=== PATIENT | female | born 1955 | race Caucasian/White ===

== ENCOUNTER → 2018-05-10 13:37 | Outpatient (CLI) | payer BC, SELFPAY ==
[2018-05-10 14:30] LABS: Add Manual Diff / Slide Review NO; Hematocrit 34.6 % (36-46); Hemoglobin 11.8 g/dL (12.0-16.0); Lymphocytes Percent Auto 17.9 % (25-40); Mean Corpuscular HGB Conc 33.9 % (30-36); Mean Corpuscular Hemoglobin 34.2 PG (26-34); Mean Corpuscular Volume 100.9 fL (80-100); Monocytes Percent Auto 11.6 % (3-14); Neutrophils Absolute Auto 4000 /uL (3000-5900); Neutrophils Percent Auto 65.5 % (50-75); Platelet Count 313 X10^3/uL (150-400); Red Blood Cell Count 3.43 X10^6/uL (4.0-5.2); Red Cell Distribution Width 13.5 % (11.6-14.8); White Blood Cell Count 6.1 X10^3/uL (4.5-11.0)
[2018-05-10 14:54] LABS: Blood Urea Nitrogen 16 mg/dL (7-17); Estimated Glomerular Filt Rate > 60.0 mL/min (>60)
== END ==
PROVIDERS: PCP Physician Assistant; Visit Provider Podiatrist
DX: M79.671 Pain in right foot (principal)
CPT/HCPCS: 36415; 82565; 84520; 85025

== ENCOUNTER → 2018-05-19 08:05 | Outpatient (CLI) | payer BC, SELFPAY ==
--- NOTE | 2018-05-19 | DI.MRI.S_ITS ---
PROCEDURE: MR FOOT RT WO/W CON INDICATIONS: RIGHT FOOT PAIN TECHNIQUE: Noncontrast sagittal T1 spin echo and T2 fast spin echo with fat saturation, long-axis T1 spin echo and T2 fast spin echo with fat saturation; short-axis T1 spin echo, proton density fast spin echo, and T2 fast spin echo with fat saturation through the forefoot. Post-contrast short axis, long axis, and sagittal T1 spin echo with fat saturation through the forefoot. COMPARISON: [facility] [place], CR, XR FOOT 3+ VIEWS RIGHT, 05/10/2018, 11:43. FINDINGS: Image quality: Suboptimal due to first MTP arthroplasty and associated artifact. Bones and joints: No suspicious osseous enhancement. No bone marrow contusions or metatarsal stress fractures. The sesamoid bones appear in expected positions, without internal edema. No metatarsophalangeal joint degeneration. No intraosseous lesions. Soft tissues: In the area marked by the fiducial, seen at the dorsal aspect of the fifth metatarsal at the level of the proximal diaphysis, there is ill-defined signal change with loss of the normal subcutaneous fat and intermediate signal on T1-weighted images isointense to muscle. There is mild focal enhancement in this region seen on image 18 series 11, which measures approximately 1.3 x 0.6 cm. The visualized plantar foot muscles demonstrate normal signal and bulk. Visualized flexor and extensor tendons appear intact, without tenosynovitis. The distal insertions of the peroneus brevis and longus tendons appear intact. The principal Lisfranc ligament appears intact. No soft tissue ganglion cysts or bursal fluid collections. Sagittal images demonstrate no evidence for plantar plate tears. IMPRESSION: Poorly defined signal change and associated enhancement in the site marked by the fiducial at the dorsal forefoot at the level of the proximal fifth metatarsal. The MR appearance is technically indeterminate. Differential includes early fibrotic process, infection, cannot exclude soft tissue neoplasm. A posttraumatic etiology is thought to be less likely. Please correlate to exam findings, and recommend clinical management. Dictated by: Uriel Trevino M.D. on 05/19/2018 at 10:00 Approved by: Uriel Trevino M.D. on 05/19/2018 at 10:29
== END ==
PROVIDERS: Visit Provider Podiatrist
DX: M79.671 Pain in right foot (principal)
CPT/HCPCS: 73720

== ENCOUNTER 2023-04-26 16:17 | Emergency (ER) | payer MEDICARE, SELFPAY ==
[2023-04-26 16:25] VITALS: BP 145/93; PULSE 75; RESP 18; TEMP 36.8; O2SAT 99; BMI 22.5
--- NOTE | 2023-04-26 16:32 | DI.RAD.S_ITS ---
PROCEDURE: XR CHEST 1V INDICATIONS: chest pain TECHNIQUE: One view of the chest was acquired. COMPARISON: None. FINDINGS: Surgical changes and devices: None. Lungs and pleura: Left perihilar infiltrate. No pleural effusions or pneumothorax. Mediastinum: Mediastinal contours appear normal. Heart size is normal. Bones and chest wall: No suspicious bony lesions. Overlying soft tissues appear unremarkable. IMPRESSION: Left perihilar infiltrates suspicious for pneumonia. Dictated by: Mariusz Sheldon M.D. on 04/26/2023 at 18:27 Approved by: Mariusz Sheldon M.D. on 04/26/2023 at 18:27
[2023-04-26 16:41] VITALS: PULSE 75; RESP 12; O2SAT 99
--- NOTE | 2023-04-26 16:46 | ED_ITS ---
HPI - Arrhythmia/Palpitations General Chief Complaint: Arrhythmia/Palpitations Stated Complaint: HEAD INJURY T-8; CARDIO REF; Afib; Time Seen by Provider: 04/26/23 16:40 Source: patient Mode of arrival: Ambulatory History of Present Illness HPI narrative: Patient is a 68-year-old female history of hypertension hyperlipidemia atrial fibrillation, cva presenting today with increasing leg weakness, a fall last week an ongoing atrial fibrillation. She reports they attempted a cardioversion in January in [place] where she receives care. She said it did not work she is really been in AFib for the last number of weeks. Her symptoms of atrial fibrillation include generalized weakness fatigue. She says they are up here for the summer in the [facility] be she fell a week ago while walking in the RV hitting her head. No loss consciousness no nausea or vomiting. She denies any chest pain or palpitations. No fever chills nausea vomiting. She reports some increasing shortness of breath with exertion but denies any orthopnea. She is n o peripheral edema. She takes flecainide Eliquis Coreg and diltiazem for her atrial fibrillation. She really does not have any new complaints today except that her speed belt sander tender in [place] recommended that she come to the ED for further evaluation. Related Data Previous Rx's Medication Instructions Recorded hydrochlorothiazide 12.5 mg tablet 12.5 mg PO QDAY #90 tabs 06/21/17 losartan 25 mg tablet 25 mg PO QDAY #90 tabs 06/21/17 furosemide 20 mg tablet (Lasix) 20 mg PO DAILY PRN weight gain #14 04/26/23 tabs Allergies Allergy/AdvReac Type Severity Reaction Status Date / Time cat dander [CAT DANDER] Allergy Mild ITCHY Unverified 02/08/18 12:33 WATERY EYES AND SNEEZING POLLEN Allergy Mild SNEEZING Uncoded 02/08/18 12:33 AND ITCHY EYES Review of Systems Review of Systems ROS Unobtainable: All systems reviewed & are unremarkable except as noted in HPI and below Patient History Surgical History Status post tubal ligation Family History Father History of prostate cancer History of lymphoma History of cancer metastatic to bone Hypertension Hyperlipidemia Mother History of breast cancer History of melanoma History of arterial ischemic stroke Hypertension Grandfather History of lung cancer Social History Smoking Status: Never smoker Smoking Status: Never smoker alcohol intake frequency: a few times a week Substance Use Type: does not use Exam Initial Vital Signs Initial Vital Signs: Vital Signs Temperature 98.3 F 04/26/23 16:25 Pulse Rate 75 04/26/23 16:25 Respiratory Rate 18 04/26/23 16:25 Blood Pressure 145/93 H 04/26/23 16:25 Pulse Oximetry 99 04/26/23 16:25 Oxygen Delivery Method Room Air 04/26/23 16:25 GENERAL: Alert well-appearing 68-year-old female HEENT: Head atraumatic,EOMI, pupils reactive, face symmetric, moist mucous membranes CARDIOVASCULAR: Irregularly irregular no murmurs RESPIRATORY: Breath sounds equal bilaterally, no wheezes rales or rhonchi. ABDOMEN: Soft, nontender. Normoactive bowel sounds all 4 quadrants. No guarding or rebound. EXTREMITIES: Normal range of motion, no clubbing or edema. Neurovascularly intact NEUROLOGICAL: Alert and oriented x4.Normal gait and speech. Cranial nerves II through XII grossly intact. Good boeavw-an-adgm, good aiiz-nl-fwft, strength equal bilaterally, no dysarthria or aphasia, sensation in tact to soft touch bilaterally, no visual changes, no facial droop SKIN: Warm, dry, no laceration, no petechiae, no rashes or lesions. Course Orders Ordered: ED Orders 04/26/23 16:32 XR chest 1V Stat EKG-12 Lead Stat 04/26/23 16:45 BNP [NT-proBNP (BNP-Adult 18+)] Stat Complete Blood Count AUTO DIFF Stat Comprehensive Metabolic Panel Stat Lipase Stat Magnesium Stat PTT Partial Thromboplastin Jean Carlos Stat Prothrombin Time INR Stat Troponin & CK Cardiac Panel Stat 04/26/23 16:53 CT head/brain wo con Stat Discontinued Medications Furosemide (Furosemide 40 Mg/4 Ml Vial) 20 mg IV NOW ONE Stop: 04/26/23 17:55 Last Admin: 04/26/23 18:05 Dose: Not Given Documented By: RACHEL Vital Signs Vital signs: Vital Signs - 8 hr 04/26/23 16:25 04/26/23 16:41 06/27/23 17:08 Temperature 98.3 F Pulse Rate 75 75 82 Respiratory Rate 18 12 Blood Pressure 145/93 H Pulse Oximetry 99 99 96 Oxygen Delivery Method Room Air 04/26/23 17:30 04/26/23 18:00 04/26/23 18:08 Temperature Pulse Rate 70 76 82 Respiratory Rate 19 21 25 H Blood Pressure Pulse Oximetry 97 98 97 Oxygen Delivery Method 04/26/23 18:08 Temperature Pulse Rate Respiratory Rate Blood Pressure 164/89 H Pulse Oximetry Oxygen Delivery Method MDM - Arrhythmia/Palpitations Lab Data 04/26/23 16:45 04/26/23 16:45 Labs: Lab Results 04/26/23 04/26/23 04/26/23 Range/Units 16:45 16:45 16:45 WBC 6.3 (4.5-11.0) X10^3/uL RBC 4.01 (4.0-5.2) X10^6/uL Hgb 13.5 (12.0-16.0) g/dL Hct 39.2 (36-46) % MCV 97.9 (80-100) fL MCH 33.7 (26-34) PG MCHC 34.5 (30-36) % RDW 15.8 H (11.6-14.8) % Plt Count 265 (150-400) X10^3/uL Neut % (Auto) 67.7 (50-75) % Lymph % (Auto) 19.7 L (25-40) % Caswell % (Auto) 7.9 (3-14) % Eos % (Auto) 2.9 (2-4) % Baso % (Auto) 1.8 (0-2) % Neut # (Auto) 4300 (8745-3054) /uL Lymph # (Auto) 1200 (5241-7233) /uL Caswell # (Auto) 500 (0-900) /uL Eos # (Auto) 200 (0-450) /uL Baso # (Auto) 100 (0-100) /uL PT 17.5 H (10.1-12.7) SECONDS INR 1.5 H (0.9-1.3) APTT 29 (26-36) SECONDS Sodium 137 (137-145) mmol/L Potassium 3.9 (3.4-5.1) mmol/L Chloride 102 (98-107) mmol/L Carbon Dioxide 29 (22-32) mmol/L BUN 23 H (7-17) mg/dL Creatinine 1.04 (0.52-1.04) mg/dL Estimated GFR 58 L (>60) mL/min BUN/Creatinine Ratio 22.1 H (6-22) Glucose 107 (80-110) mg/dL Calcium 9.1 (8.4-10.2) mg/dL Magnesium 2.0 (1.6-2.3) mg/dL Total Bilirubin 0.6 (0.2-1.3) mg/dL AST 21 (14-36) IU/L ALT 16 (<35) IU/L Alkaline Phosphatase 87 (38-126) U/L Total Creatine Kinase 28 L (30-135) U/L CK-MB (CK-2) TNP CK-MB (CK-2) Rel Index TNP Troponin I < 0.012 (0.01-0.034) ng/mL NT-Pro-B Natriuret Pep (<125) pg/mL Total Protein 7.5 (6.3-8.2) g/dL Albumin 4.4 (3.5-5.0) g/dL Globulin 3.1 (1.7-4.1) g/dL Albumin/Globulin Ratio 1.4 (1.0-2.8) Lipase 225 (23-300) U/L 04/26/23 Range/Units 16:45 WBC (4.5-11.0) X10^3/uL RBC (4.0-5.2) X10^6/uL Hgb (12.0-16.0) g/dL Hct (36-46) % MCV (80-100) fL MCH (26-34) PG MCHC (30-36) % RDW (11.6-14.8) % Plt Count (150-400) X10^3/uL Neut % (Auto) (50-75) % Lymph % (Auto) (25-40) % Caswell % (Auto) (3-14) % Eos % (Auto) (2-4) % Baso % (Auto) (0-2) % Neut # (Auto) (5250-5976) /uL Lymph # (Auto) (9833-2112) /uL Caswell # (Auto) (0-900) /uL Eos # (Auto) (0-450) /uL Baso # (Auto) (0-100) /uL PT (10.1-12.7) SECONDS INR (0.9-1.3) APTT (26-36) SECONDS Sodium (137-145) mmol/L Potassium (3.4-5.1) mmol/L Chloride (98-107) mmol/L Carbon Dioxide (22-32) mmol/L BUN (7-17) mg/dL Creatinine (0.52-1.04) mg/dL Estimated GFR (>60) mL/min BUN/Creatinine Ratio (6-22) Glucose (80-110) mg/dL Calcium (8.4-10.2) mg/dL Magnesium (1.6-2.3) mg/dL Total Bilirubin (0.2-1.3) mg/dL AST (14-36) IU/L ALT (<35) IU/L Alkaline Phosphatase (38-126) U/L Total Creatine Kinase (30-135) U/L CK-MB (CK-2) CK-MB (CK-2) Rel Index Troponin I (0.01-0.034) ng/mL NT-Pro-B Natriuret Pep 1090 H (<125) pg/mL Total Protein (6.3-8.2) g/dL Albumin (3.5-5.0) g/dL Globulin (1.7-4.1) g/dL Albumin/Globulin Ratio (1.0-2.8) Lipase (23-300) U/L Imaging Data CT scan - head: Radiologist's Impresson: PROCEDURE:? CT HEAD/BRAIN WO CON ? INDICATIONS:? fall on eliquis ? TECHNIQUE:? Noncontrast 4.5 mm thick angled axial sections acquired from the foramen magnum to the vertex, with coronal and sagittal reformats.? For radiation dose reduction, the following was used:? automated exposure control, adjustment of mA and/or kV according to patient size.? ? COMPARISON:? None. ? FINDINGS:? Image quality:? Excellent.? ? CSF spaces:? Basal cisterns are patent.? No extra-axial fluid collections.? The ventricles are symmetric in size and shape.? ? Brain:? No intracranial bleeds or masses.? There is a small area of old infarct in the right parietal lobe with encephalomalacia.? There is cerebral volume loss for age, with resultant ventricular and sulcal prominence.? There are periventricular and deep white matter chronic small vessel ischemic changes.? There is intracranial internal carotid artery atherosclerosis.? ? Skull and face:? There is indeterminate heterogeneous appearance of calvarium but no discrete sclerotic or lytic bone lesions.? Calvarium and visualized facial bones appear intact, without suspicious lesions.? ? Sinuses:? Visualized sinuses and mastoids are clear.? ? IMPRESSION:? ? 1. No acute intracranial abnormalities. ? 2. Small old infarct in the right parietal lobe. ? 3.? Cerebral volume loss and chronic microvascular ischemic changes. ? ? ? Dictated by: Mariusz Sheldon M.D. on 04/26/2023 at 17:05 ? ? Chest x-ray: Radiologist's Impresson: PROCEDURE:? XR CHEST 1V ? INDICATIONS:? chest pain ? TECHNIQUE:? One view of the chest was acquired.? ? COMPARISON:? None. ? FINDINGS:? ? Surgical changes and devices:? None.? ? Lungs and pleura:? Left perihilar infiltrate.? No pleural effusions or pneumothorax.? ? Mediastinum:? Mediastinal contours appear normal.? Heart size is normal.? ? Bones and chest wall:? No suspicious bony lesions.? Overlying soft tissues appear unremarkable.? ? IMPRESSION:? Left perihilar infiltrates suspicious for pneumonia. ? ? Dictated by: Maruisz Sheldon M.D. on 04/26/2023 at 18:27 ? ? ECG Data Interpretation: Atrial flutter rate [address] changes, atrial flutter is new from previous EKG in 2015 MDM Narrative Medical decision making narrative: Patient is 68-year-old female who presents today with generalized weakness fatigue some shortness of breath and fall. She fell 1 week ago she is no intracranial a neuro deficits however she is on Eliquis. Head CT shows an old stroke but no acute bleed. She is in atrial flutter she is chronically in it and is rate controlled. However now appears to have new onset congestive heart failure with BNP of 10 90. She is not hypoxic she does not appear per significantly fluid overloaded but would benefit from Lasix. Blood work is otherwise overall reassuring without anemia leukocytosis electrolyte abnormality or NELDA. Chest x-ray does show questionable pneumonia however she has no cough fever or body aches I think it is probably more related to fluid overload. She is always in atrial flutter she failed a cardioversion, taking flecainide. At this time will start her on Lasix to see if it improves any of her symptoms. Strongly recommended that she at a local speed belt sander tender and follow-up as needed. Discharge Plan Departure Patient Disposition: Home Clinical Impression: Atrial flutter with controlled response, Congestive heart failure Instructions: Heart Failure, DI for Atrial Flutter Activity Restrictions/Additional Instructions: *You have been diagnosed with atrial flutter, congestive heart failure *What to do: At this time decrease your water intake slightly. Recommend weaning herself once daily and monitoring. Monitor your salt intake as well. You will need an echocardiogram *Continue to take medications as directed Lasix 20 mg once a day for 3 days then stop (you will have extra pills) *Follow up with your primary care provider in 2-3 days or call [phone] Call Cardiology to schedule follow-up appointment *Return to ER if you should have increasing weakness dizziness lightheadedness frequent falls shortness of breath or any new, worsening or concerning symptoms Prescriptions: New furosemide [Lasix] 20 mg tablet 20 mg PO DAILY PRN (Reason: weight gain) Qty: 14 0RF No Action losartan 25 MG tablet 25 mg PO QDAY Qty: 90 3RF hydrochlorothiazide 12.5 MG tablet 12.5 mg PO QDAY Qty: 90 3RF Referrals: Scott Marte MD [Non-Staff] - Miscellaneous,MD [place] [Primary Care Provider] - Cari Ramsey MD [Physician] - Jael Hutchinson MD [Physician] - Manfred Petty MD [Physician] - Stand Alone Forms: Patient Portal/API
--- NOTE | 2023-04-26 16:53 | DI.CT.S_ITS ---
PROCEDURE: CT HEAD/BRAIN WO CON INDICATIONS: fall on eliquis TECHNIQUE: Noncontrast 4.5 mm thick angled axial sections acquired from the foramen magnum to the vertex, with coronal and sagittal reformats. For radiation dose reduction, the following was used: automated exposure control, adjustment of mA and/or kV according to patient size. COMPARISON: None. FINDINGS: Image quality: Excellent. CSF spaces: Basal cisterns are patent. No extra-axial fluid collections. The ventricles are symmetric in size and shape. Brain: No intracranial bleeds or masses. There is a small area of old infarct in the right parietal lobe with encephalomalacia. There is cerebral volume loss for age, with resultant ventricular and sulcal prominence. There are periventricular and deep white matter chronic small vessel ischemic changes. There is intracranial internal carotid artery atherosclerosis. Skull and face: There is indeterminate heterogeneous appearance of calvarium but no discrete sclerotic or lytic bone lesions. Calvarium and visualized facial bones appear intact, without suspicious lesions. Sinuses: Visualized sinuses and mastoids are clear. IMPRESSION: 1. No acute intracranial abnormalities. 2. Small old infarct in the right parietal lobe. 3. Cerebral volume loss and chronic microvascular ischemic changes. Dictated by: Mariusz Sheldon M.D. on 04/26/2023 at 17:05 Approved by: Mariusz Sheldon M.D. on 04/26/2023 at 17:07
[2023-04-26 17:02] LABS: Add Manual Diff / Slide Review NO; Basophils Absolute Auto 100 /uL (0-100); Basophils Percent Auto 1.8 % (0-2); Eosinophils Absolute Auto 200 /uL (0-450); Eosinophils Percent Auto 2.9 % (2-4); Hematocrit 39.2 % (36-46); Hemoglobin 13.5 g/dL (12.0-16.0); Lymphocytes Absolute Auto 1200 /uL (1100-4500); Lymphocytes Percent Auto 19.7 % (25-40); Mean Corpuscular HGB Conc 34.5 % (30-36); Mean Corpuscular Hemoglobin 33.7 PG (26-34); Mean Corpuscular Volume 97.9 fL (80-100); Monocytes Absolute Auto 500 /uL (0-900); Monocytes Percent Auto 7.9 % (3-14); Neutrophils Absolute Auto 4300 /uL (1500-7000); Neutrophils Percent Auto 67.7 % (50-75); Platelet Count 265 X10^3/uL (150-400); Red Blood Cell Count 4.01 X10^6/uL (4.0-5.2); Red Cell Distribution Width 15.8 % (11.6-14.8); White Blood Cell Count 6.3 X10^3/uL (4.5-11.0)
[2023-04-26 17:04] LABS: INR 1.5 (0.9-1.3); Prothrombin Time 17.5 SECONDS (10.1-12.7)
[2023-04-26 17:07] LABS: PTT Partial Thromboplastin Tim 29 SECONDS (26-36)
[2023-04-26 17:08] VITALS: PULSE 82; O2SAT 96
[2023-04-26 17:08] LABS: Alanine Aminotransferase 16 IU/L (<35); Albumin 4.4 g/dL (3.5-5.0); Albumin Globulin Ratio 1.4 (1.0-2.8); Alkaline Phosphatase 87 U/L (38-126); Aspartate Aminotransferase 21 IU/L (14-36); BUN Creatinine Ratio 22.1 (6-22); Bilirubin Total 0.6 mg/dL (0.2-1.3); Blood Urea Nitrogen 23 mg/dL (7-17); Calcium 9.1 mg/dL (8.4-10.2); Carbon Dioxide 29 mmol/L (22-32); Chloride 102 mmol/L (98-107); Creatine Kinase 28 U/L (30-135); Estimated Glomerular Filt Rate 58 mL/min (>60); Globulin 3.1 g/dL (1.7-4.1); Glucose 107 mg/dL (80-110); HEMOLYSIS < 15 (0-50); Lipase 225 U/L (23-300); Potassium 3.9 mmol/L (3.4-5.1); Sodium 137 mmol/L (137-145); Total Protein 7.5 g/dL (6.3-8.2)
[2023-04-26 17:16] LABS: NT-proBNP (BNP-Adult 18+) 1090 pg/mL (<125)
[2023-04-26 17:18] LABS: Troponin I < 0.012 ng/mL (0.01-0.034)
[2023-04-26 17:30] VITALS: PULSE 70; RESP 19; O2SAT 97
[2023-04-26 18:00] VITALS: PULSE 76; RESP 21; O2SAT 98
[2023-04-26 18:08] VITALS: BP 164/89; PULSE 82; RESP 25; O2SAT 97
== END 2023-04-26 18:21 | disposition home or self-care (01) ==
PROVIDERS: Emergency Provider Emergency Medicine
DX: I50.9 Heart failure, unspecified (principal); I48.92 Unspecified atrial flutter; R07.9 Chest pain, unspecified; Z79.01 Long term (current) use of anticoagulants; S09.90XA Unspecified injury of head, initial encounter; W18.09XA Striking against other object with subsequent fall, initial encounter
CPT/HCPCS: 36415; 70450; 71045; 80053; 82550; 83690; 83735; 83880; 84484; 85025; 85610; 85730; 93005; 93010; 99283; 99284

== ENCOUNTER → 2024-01-02 13:40 | Outpatient (CLI) | payer MEDICARE, SELFPAY ==
[2024-01-02 15:34] LABS: Add Manual Diff / Slide Review NO; Basophils Absolute Auto 100 /uL (0-100); Basophils Percent Auto 1.1 % (0-2); Eosinophils Absolute Auto 200 /uL (0-450); Eosinophils Percent Auto 2.6 % (2-4); Hematocrit 37.3 % (36-46); Hemoglobin 12.8 g/dL (12.0-16.0); Lymphocytes Absolute Auto 1400 /uL (1100-4500); Lymphocytes Percent Auto 21.9 % (25-40); Mean Corpuscular HGB Conc 34.2 % (30-36); Mean Corpuscular Volume 99.5 fL (80-100); Monocytes Absolute Auto 700 /uL (0-900); Monocytes Percent Auto 11.3 % (3-14); Neutrophils Absolute Auto 4000 /uL (1500-7000); Neutrophils Percent Auto 63.1 % (50-75); Platelet Count 304 X10^3/uL (150-400); Red Blood Cell Count 3.75 X10^6/uL (4.0-5.2); Red Cell Distribution Width 14.1 % (11.6-14.8); White Blood Cell Count 6.3 X10^3/uL (4.5-11.0)
[2024-01-02 15:54] LABS: Alanine Aminotransferase 13 IU/L (<35); Albumin 4.3 g/dL (3.5-5.0); Albumin Globulin Ratio 1.4 (1.0-2.8); Alkaline Phosphatase 76 U/L (38-126); Aspartate Aminotransferase 21 IU/L (14-36); BUN Creatinine Ratio 13.3 (6-22); Bilirubin Total 0.6 mg/dL (0.2-1.3); Blood Urea Nitrogen 21 mg/dL (7-17); Calcium 9.4 mg/dL (8.4-10.2); Carbon Dioxide 31 mmol/L (22-32); Chloride 108 mmol/L (98-107); Cholesterol 192 mg/dL (140-199); Estimated Glomerular Filt Rate 35 mL/min (>60); Glucose 105 mg/dL (80-110); HDL Cholesterol 79 mg/dL (40-60); HEMOLYSIS < 15 (0-50); LDL Cholesterol Calculated 86 mg/dL (<100); Potassium 4.5 mmol/L (3.4-5.1); Sodium 142 mmol/L (137-145); Total Protein 7.3 g/dL (6.3-8.2); Triglycerides 134 mg/dL (35-150)
[2024-01-02 16:16] LABS: Free T3, Triiodothyronine Free 3.91 pg/mL (2.77-5.27); Free T4, Direct Thyroxine 1.26 ng/dL (0.78-2.19)
[2024-01-02 16:29] LABS: Thyroid Stimulating Hormone 2.68 uIU/mL (0.47-4.68)
[2024-01-02 16:43] LABS: Hep C Virus Ab w/Reflex Quant NEGATIVE s/c (NEGATIVE)
== END ==
PROVIDERS: PCP Nurse Practitioner; Referring Provider Nurse Practitioner; Visit Provider Nurse Practitioner
DX: Z11.59 Encounter for screening for other viral diseases (principal); I10 Essential (primary) hypertension; E78.5 Hyperlipidemia, unspecified; Z79.899 Other long term (current) drug therapy
CPT/HCPCS: 36415; 80053; 80061; 84439; 84443; 84481; 85025; 86803